=== PATIENT | male | born 1975 | race Caucasian/White ===

== ENCOUNTER 2025-04-05 14:53 | Outpatient (AMB) | payer BC, SELFPAY ==
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
[2025-04-05 15:05] VITALS: BP 136/98; PULSE 80; TEMP 36.5; O2SAT 96; BMI 28.1
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
== END 2025-04-05 15:31 | disposition home or self-care (01) ==
LOC: HO.HMCFMS 14:53
PROVIDERS: Visit Provider Student in an Organized Health Care Education/Training Program
DX: R03.0 Elevated blood-pressure reading, without diagnosis of hypertension (principal); J06.9 Acute upper respiratory infection, unspecified; R06.2 Wheezing; E66.3 Overweight; Z68.26 Body mass index [BMI] 26.0-26.9, adult; F12.90 Cannabis use, unspecified, uncomplicated; Z86.0100 Personal history of colon polyps, unspecified; Z98.890 Other specified postprocedural states; Z87.19 Personal history of other diseases of the digestive system

== ENCOUNTER 2025-04-05 14:53 | Outpatient (REF) | payer BC, SELFPAY ==
[2025-04-05 18:18] LABS: MANUAL DIFF FLAG NO
[2025-04-05 18:27] LABS: Appearance Urine Clear; Glucose Urine UA Negative (Negative); PH 6.0 (5.0-9.0); Specific Gravity - Urine 1.020 (1.005-1.025)
[2025-04-05 18:29] LABS: Hematocrit 44.5 % (42.0-52.0); Hemoglobin 14.3 g/dl (14.0-18.0); Imm Gran Abs Auto 0.02 X10*3/uL (0.00-0.03); Imm Gran Pct Auto 0.3 % (0.0-0.4); Lymphocytes Absolute Auto 2.4 X10*3/uL (1.2-4.9); Mean Corpuscular HGB Conc 32.1 g/dl (31.0-36.0); Mean Corpuscular Hemoglobin 30.0 pg (27.0-33.0); Mean Corpuscular Volume 93.3 fL (80.0-98.0); NRBC Abs Auto 0.000 X10*3/uL (0.0-0.012); NRBC Pct Auto 0.0 /100WBC (0.0-0.2); Platelet Count 267 X10*3/uL (160-400); Red Blood Count 4.77 X10*6/uL (4.60-5.80); White Blood Count 6.9 X10*3/uL (4.8-10.8)
[2025-04-05 19:13] LABS: Microalbum/Creatinine Ratio Ur 19.9 ug/mg cr (<30)
[2025-04-05 19:15] LABS: Alanine Aminotransferase 33 U/L (0-40); Albumin Level 4.5 g/dL (3.5-5.0); Alkaline Phosphatase 61 U/L (39-117); Anion Gap 14 (12-20); Aspartate Amino Transferase 31 U/L (5-37); Blood Urea Nitrogen 14 mg/dL (9-16); Calcium 9.4 mg/dL (8.4-10.2); Carbon Dioxide 25 mmol/L (22-29); Chloride 106 mmol/L (96-108); Cholesterol 240 mg/dL (<200); Estimated Glomerular Filt Rate > 60; HDL Cholesterol 44 mg/dL (>40); Potassium 4.3 mmol/L (3.3-5.1); Sodium 141 mmol/L (135-145); Total Protein 7.6 g/dL (6.5-8.0); Triglycerides 234 mg/dL (<150)
[2025-04-05 19:49] LABS: Folate 9.2 ng/mL (> or = 4.0); Vitamin B12 359 pg/mL (200-900)
[2025-04-06 03:51] LABS: Syphilis Screen Nonreactive (Nonreactive)
[2025-04-06 04:44] LABS: HBS Num1 0.36 mIU/mL (0-7.99); HBsAGNum1 0.29 S/CO (0.00-0.99); HIV Num 1 0.05 S/CO (0.00-0.99); Hepatitis B Surface Antigen Negative (Negative); ~HepC Num1 0.09 S/CO (0.00-0.79); ~Hepatitis B Surface Antibody NONREACTIVE (Nonreactive); ~Hepatitis C Antibody Nonreactive (Nonreactive)
[2025-04-06 05:13] LABS: CT PCR Urine NOT DETECTED (Not Detect.); NG PCR Urine NOT DETECTED (Not Detect.)
[2025-04-06 05:25] LABS: Hemoglobin A1C 147.4256 umol/L
[2025-04-10 17:09] LABS: VITAMIN D (1,25 OH) D3 37 pg/mL; Vit D (1,25-Dihydroxy) Total 37 pg/mL (18-72); Vitamin D (1,25 OH) D2 <8 pg/mL
[2025-04-11 22:59] LABS: Chlamydia Trachomatis IgA <1:16 titer (<1:16)
== END 2025-04-05 14:54 | disposition home or self-care (01) ==
LOC: HO.HKASLDS 14:53
PROVIDERS: Visit Provider Student in an Organized Health Care Education/Training Program
DX: Z76.89 Persons encountering health services in other specified circumstances (principal); Z13.9 Encounter for screening, unspecified; Z13.1 Encounter for screening for diabetes mellitus; Z13.220 Encounter for screening for lipoid disorders; Z13.31 Encounter for screening for depression; Z13.6 Encounter for screening for cardiovascular disorders; R06.2 Wheezing; R03.0 Elevated blood-pressure reading, without diagnosis of hypertension; E66.3 Overweight; J06.9 Acute upper respiratory infection, unspecified; F12.90 Cannabis use, unspecified, uncomplicated; Z98.890 Other specified postprocedural states; Z87.19 Personal history of other diseases of the digestive system; Z87.828 Personal history of other (healed) physical injury and trauma; Z87.891 Personal history of nicotine dependence; Z86.0100 Personal history of colon polyps, unspecified
CPT/HCPCS: 80053; 80061; 81003; 82043; 82570; 82607; 82652; 82746; 83036; 85025; 86631; 86632; 86706; 86780; 86803; 87340; 87389; 87491; 87591; 96127

== ENCOUNTER 2025-05-10 15:52 | Outpatient (AMB) | payer BC, SELFPAY ==
[2025-05-10 16:04] VITALS: BP 129/83; PULSE 82; TEMP 36.6; O2SAT 97; BMI 29.0
--- NOTE | 2025-05-10 16:04 | MHC.PC.OV ---
Vital Signs 05/10/25 16:04 Height 5 ft 9.09 in Weight 197 lb BMI 29.0 BP 129/83 Blood Pressure Location Lt brachial Position Sitting Pulse 82 Pulse Source Pulse Oximeter Temp 97.8 F Temp Source Oral Pulse Oximetry (%) 97 Oxygen Delivery Method Room Air Intake Visit Reasons: 2 week Follow Up Accompanied by: Self / Same As Patient Allergies No Known Allergies Allergy (Verified 05/10/25 16:04) Tobacco use date assessed: 05/10/25 Dental Screening Dental Screen Date: 05/10/25 Did you have a dental visit in the last 12 months?: Yes Was dental information given to patient?: Patient has dentist HPI HPI Comments History of Present Illness Details History of Present Illness The patient is a 49-year-old male presenting for review of lab results. Dysphagia: The patient reports ongoing difficulty swallowing food, including bread, with a sensation of it getting stuck. A previous eating test performed with another provider showed normal digestion. Prediabetes: The patient has a newly identified hemoglobin A1c in the prediabetic range of 5.7 to 6.4. He reports consuming a lot of sweets, including candy and a whole pack of cookies at night, as well as a lot of bread. Mixed Hyperlipidemia: Recent labs revealed elevated triglycerides at 234 mg/dL, total cholesterol at 240 mg/dL, and LDL cholesterol at 150 mg/dL. Arthritis of Knee: The patient reports knee joint pain upon standing, which is attributed to wear and tear from his occupation involving kneeling on hard surfaces like concrete. He sometimes uses knee pads for protection and occasionally takes ibuprofen for the pain. 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 - Diet: Reports a high intake of sweets, such as candy and eating a whole pack of cookies at night. - Exercise: Reports doing stretching and flexing exercises. Diagnostic Results: - Labs: Recent bloodwork showed the following results: - CBC: White blood cells, red blood cells, hemoglobin, and hematocrit are normal. - CMP: Sodium, potassium, and kidney function are good. - Liver Function: Normal. - Glucose: Random glucose was good. - Hemoglobin A1c: Elevated, in the prediabetes range (5.7-6.4). - Lipid Panel: Triglycerides elevated at 234 mg/dL (normal < 150), total cholesterol at 240 mg/dL (normal < 200), and LDL cholesterol at 150 mg/dL (normal < 100). - Vitamins: Vitamin B12 and Vitamin D are normal. - Folate: Normal. - Urinalysis: Normal. - Infectious Disease Screening: Negative for syphilis, chlamydia, hepatitis B, hepatitis C, and HIV. - Diagnostics: - Prior eating test: Results showed normal digestion. Past Medical History - Dysphagia with a prior eating test that showed normal digestion. Health Maintenance - Screening labs reviewed, revealing new findings of prediabetes and mixed hyperlipidemia. - STI screening was performed with negative results for syphilis, chlamydia, hepatitis B, hepatitis C, and HIV. - Discussed dietary modifications, including reducing intake of sweets and bread, to manage prediabetes and hyperlipidemia. - Discussed the importance of using protective gear, specifically knee pads, during work to prevent joint injury. [facility] Medical History Wheezing Family History Father Diabetes Heart disease Mother Diabetes Dementia Heart disease Social History Housing: House Patient Tobacco Use Status: Current everyday Tobacco user service: No Current occupational status: employed Cognitive needs: No Hearing needs: No Vision needs: Yes (rx glasses) Questionnaire PHQ-9 Over the last 2 weeks, how often have you been bothered by any of the following problems? 1. Little interest or pleasure in doing things: several days 2. Feeling down, depressed, or hopeless: not at all 3. Trouble falling or staying asleep, or sleeping too much: not at all 4. Feeling tired or having little energy: several days 5. Poor appetite or overeating: not at all 6. Feeling bad about yourself - or that you are a failure or have let yourself or your family down: not at all 7. Trouble concentrating on things, such as reading the newspaper or watching television: not at all 8. Moving or speaking so slowly that other people could have noticed. Or the opposite - being so fidgety or restless that you have been moving around a lot more than usual: not at all 9. Thoughts that you would be better off or of hurting yourself in some way: not at all Total score: 2 Depression Screening Interpretation: Negative Depression Screening Done: Yes Source: Developed by Drs. Prateek Villasenor, Joanna Kirk, Terry Vasquez and colleagues, with an educational elodia from [employer]. Thrive Questionnaire Date Thrive assessed: 05/10/25 I am a: Patient What is your living situation today?: I have a steady place to live Within the past 12 months, did the food you bought not last and you didn't have the money to get more?: Never true Within the past 12 months, did you worry whether your food would run out before you got money to buy more?: Never true Do you have trouble paying for medicines?: No Do you have trouble getting transportation to medical appointments?: No Do you have trouble paying your heating and electricity bill?: No Do you have trouble taking care of your child, family member or friend?: No Do you have trouble with day-to-day activities such as bathing, preparing meals, shopping, managing finances, etc.?: No Are you currently unemployed and looking for a job?: No Are you interested in more education?: No Please select the resources that you would like help with: None Currently or been in a relationship where the following occur: No concerns reported THRIVE Score: 0 AUDIT C Alcohol Use Questionnaire (AUDIT-C) 1. How often do you have a drink containing alcohol?: 2-4 times a month 2. How many drinks containing alcohol do you have on a typical day when you are drinking?: 5 or 6 3. How often do you have six or more drinks on one occasion?: Weekly Total Score: 7 LEONID-7 AMB Questionnaire LEONID-7 Date LEONID - 7 assessed: 05/10/25 Feeling nervous, anxious, or on edge: 0 = Not at all Not being able to stop or control worryin = Several days Worrying too much about different things: 1 = Several days Trouble relaxin = Several days Being so restless that it is hard to sit still: 0 = Not at all Becoming easily annoyed or irritable: 2 = More than half the days Feeling afraid as if something awful might happen: 0 = Not at all Total LEONID-7 score (0-4 normal; 5-9 mild; 10-14 moderate; 15-21 severe): 5 Source: Developed by Drs. Prateek Villasenor, Joanna Kirk, Terry Vasquez and colleagues, with an educational elodia from [employer]. Review of Systems Narrative Review of Systems - Gastrointestinal: Reports dysphagia, feeling that food gets stuck. - Musculoskeletal: Reports joint pain in his knees upon standing. 10-point ROS reviewed and negative except as noted in HPI Physical exam (Primary Care) Vital Signs: Last Vital Signs Temp 97.8 F 05/10/25 16:04 Pulse 82 05/10/25 16:04 BP 129/83 05/10/25 16:04 Pulse Ox 97 05/10/25 16:04 Oxygen Delivery Method Room Air 05/10/25 16:04 BMI result Body Mass Index 29.0 Tobacco/Smoking Status: Tobacco use Status Tobacco use date assessed 05/10/25 05/10/25 16:11 Patient Tobacco Use Status Current everyday Tobacco 05/10/25 16:05 PHQ-9: PHQ-9 Score PHQ-9: Total score 2 05/10/25 16:15 Depression Screening Interpretation: Negative Thrive Assessment: Date of Thrive Assessment Date Thrive assessed 05/10/25 05/10/25 16:05 Currently or been in a relationship where the following occur: No concerns reported Narrative Physical Exam General: Well-appearing, in no acute distress. Vital signs: Within normal limits. HEENT: Normocephalic, atraumatic. PERRLA, EOMI. Conjunctiva clear, sclera anicteric. Oropharynx clear, mucous membranes moist. TMs intact bilaterally. Neck: Supple, no lymphadenopathy, no thyromegaly, no JVD or carotid bruits. Cardiovascular: RRR, normal S1/S2, no murmurs, rubs, or gallops. Peripheral pulses 2+ and symmetric. No edema. Respiratory: Lungs clear to auscultation bilaterally, no wheezes, rales, or rhonchi. Normal effort. Abdomen: Soft, non-tender, non-distended. Normoactive bowel sounds. No hepatosplenomegaly, no masses. MSK: Full range of motion, no joint swelling or deformity. Normal gait. Reports knee pain likely due to arthritis from occupational wear and tear. Occasional ibuprofen use for pain management. Skin: Warm, dry, intact. No rashes, lesions, or pallor. Neuro: Alert and oriented x3. Cranial nerves II-XII intact. Strength 5/5 throughout. Sensation intact. Reflexes 2+ symmetric. Normal coordination and gait. Psych: Appropriate mood and affect. Normal judgment and insight. Office Procedures Flu Questionnaire Does the patient have a severe egg allergy?: No Does the patient have severe life threatening allergies?: No Does the patient have a fever or illness today?: No Has the patient ever had Guillain-Moonachie Syndrome?: No Has the patient ever had any past reaction to a flu shot?: No Immunizations Fluarix [id number] (PF) 45 mcg (15 mcg x 3)/0.5 mL IM syringe Performing Provider: José Manuel Smith MD Performing Location: [facility] Documented (not given) by: Arina Emmanuel CMA on 05/10/25 16:15 Reason Not Given: Patient Refused Coding Level of Care Code Est Pt Level 3 (56474) Diagnoses Hyperlipidemia E78.5 Dysphagia R13.10 Prediabetes R73.03 Arthritis of knee M17.10 Assessment & Plan Assessment & Plan (1) Hyperlipidemia: Code(s): E78.5 - Hyperlipidemia, unspecified Category: Medical (2) Dysphagia: Code(s): R13.10 - Dysphagia, unspecified (3) Prediabetes: Code(s): R73.03 - Prediabetes (4) Arthritis of knee: Code(s): M17.10 - Unilateral primary osteoarthritis, unspecified knee Plan Consent Patient was informed and verbally consented to the use of an ambient scribe for clinic note documentation during this visit. Plan 1. Dysphagia - The patient has been referred to Gastroenterology for further evaluation. - The patient has left a voicemail with the gastroenterology office and will await their call. - Instructed to call our office if he does not hear back from them within a week or two. 2. Prediabetes - A referral will be placed for a registered vascular technologist (rvt) to provide counseling on dietary habits. - Advised to reduce intake of candy, cookies, and bread. - Encouraged to increase consumption of greens and proteins. - Plan to follow up in 3 months to repeat labs and monitor progress. 3. Mixed Hyperlipidemia - A referral to a registered vascular technologist (rvt) will be made for education on dietary changes. - The patient was educated on the risk of pancreatitis with elevated triglycerides. - Advised that dietary changes can improve cholesterol and triglyceride levels. - Plan to repeat lipid panel in 3 months. 4. Arthritis Of Knee - Advised to consistently use knee pads at work for protection. - Recommended to work on strengthening the muscles around the knees. - May take occasional ibuprofen for pain management. - Advised against using unproven [id number] joint supplements. Discussion Notes I reviewed the patient's lab results, noting normal CBC, kidney function, and liver function. I explained that his hemoglobin A1c is in the prediabetic range and that his triglycerides, total cholesterol, and LDL cholesterol are elevated. We discussed how his dietary habits, particularly high sugar and bread intake, are contributing to these results, and I educated him on the risk of progressing to type 2 diabetes and pancreatitis. I informed him about the referral to a registered vascular technologist (rvt) to help with dietary changes. We also addressed his ongoing dysphagia, confirming the referral to gastroenterology is in place and he should follow up with their office. Regarding his knee pain, I explained it is likely [id number] arthritis and recommended consistent use of knee pads, muscle strengthening exercises, and occasional ibuprofen for pain. I advised against unproven supplements advertised on television. We agreed to a follow-up visit in three months to recheck his labs. Patient Instructions - A referral has been made to a pharmaceutical officer for your difficulty swallowing. - You have already left a message for the pharmaceutical officer; if you do not hear from them in a week or two, please call our office. - A registered vascular technologist (rvt) will call you to help you make healthier food choices. - Try to cut down on sweets like candy and cookies, as well as bread, and eat more greens and protein. - Always use knee pads at work to protect your joints. - You may take ibuprofen for your knee pain as needed. - We will see you back in three months to repeat your blood work and check on your progress. Medical Decision Making The patient is a 49-year-old male presenting for a review of lab results. The primary findings are new-onset prediabetes and mixed hyperlipidemia, evidenced by an elevated hemoglobin A1c, triglycerides, and cholesterol. The patient's self-reported diet, high in sugar and carbohydrates, is the likely cause. The initial management strategy is conservative, focusing on lifestyle modification through a referral to a registered vascular technologist (rvt) rather than immediate pharmacotherapy. This approach is appropriate given the patient's acknowledgment of his dietary habits and his willingness to make changes. The patient's complaint of dysphagia requires further investigation to rule out a structural or motility disorder, making the referral to gastroenterology necessary. 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 A follow-up in three months will allow for re-evaluation of his metabolic parameters and assessment of the efficacy of dietary changes. Total time spent caring for the patient today was 30 minutes. This includes time spent before the visit reviewing the chart, time spent documenting, and time spent reviewing laboratory results, diagnostic imaging, medications, performing a medically necessary evaluation, counseling on diagnoses, care coordination. Orders: Orders Influenza [id number] Immunization Today Z23 - Encounter for immunization Referrals Nurse Navigator Referral E78.5 - Hyperlipidemia, unspecified
--- OUTSIDE RECORDS SUMMARY | 2025-05-10 20:02 | XMS_ITS | Clinical Summary ---
Author Organization [facility] Address [address] [place] [address] Care Team Providers Care Pin Drafter Name Role Phone Michael Arcos MD Primary [...] (degenerative disc disease), lumbar 11/28/19 22 Immunizations Immunization Administration Dates Next Due Tdap Tetanus diptheria acell ular pertussis (Boostrix; Adacel) 7yo and older 12/11/2018 Surgical History Surgery Date Site/Laterality Comments ABDOMINAL SURGERY 1999 PROCEDURE: MT UNLISTED PROCEDURE ABDOMEN PERITONEUM & OMENTUM; COMMENT: [...] Health Maintenance Due Date Last Done Comments Colorectal Cancer Screening: Colonoscopy 1973 Hepatitis B Vaccines (1 of 3 - 19+ 3-dose series) 1992 Pneumococcal Vaccine: 50+ Ye ars (1 of 2 - PCV) 1992 HIV Screening 06/22/2022 Hepatitis C Screening 06/22/2022 Social Influencers of Health Screening 06/22/2022 Zoster Vaccines (1 of 2) 10/16/2023 Depression Screening 07/13/2024 COVID-19 Vaccine (1 - 2023-2 5 season) 2025 Influenza Vaccine (#1) 2025 Cholesterol Screening (Lipid Panel) 12/25/2027 12/24/2022 DTaP,Tdap,and Td Vaccines (2 - Td or Tdap) 12/11/2028 12/11/2018 RSV Immunization Adult Patie nts (1 - 1-dose 75+ series) 2048 HIB Vaccines Aged Out No longer eligi [...] mg/dL Blood Venous blood specimen / Unknown us Historical Provider LAB BLOOD ORDERABLES Vika l Result from Last 3 Months or Most Recently Relevant to Health Maintenance Care Teams Pin Drafter Relationship Specialty Start Date End Date Michael Arcos MD [address] [place] [address] PCP - General Internal Medicine 11/11/21
== END 2025-05-10 16:29 | disposition home or self-care (01) ==
LOC: HO.HMCFMS 15:53
PROVIDERS: Visit Provider Student in an Organized Health Care Education/Training Program
DX: E78.5 Hyperlipidemia, unspecified (principal); R13.10 Dysphagia, unspecified; R73.03 Prediabetes; M17.10 Unilateral primary osteoarthritis, unspecified knee; Z23 Encounter for immunization

== ENCOUNTER → 2025-05-10 15:52 | Outpatient (BNVA) | payer BC, SELFPAY | PROVIDERS: Visit Provider Student in an Organized Health Care Education/Training Program | DX: Z28.21 Immunization not carried out because of patient refusal (principal); R73.03 Prediabetes; R13.10 Dysphagia, unspecified; E78.2 Mixed hyperlipidemia; M17.0 Bilateral primary osteoarthritis of knee; Z13.30 Encounter for screening examination for mental health and behavioral disorders, unspecified | CPT/HCPCS: 90471; 96127 ==